=== PATIENT | female | born 1980 | race Caucasian/White ===

== ENCOUNTER 2023-03-17 18:13 | Emergency (ER) | payer OTHER ==
[~2023-03-17] VITALS: Ht 167.6 cm; Wt 90.7 kg
[2023-03-17 18:58] VITALS: BP 125/47; PULSE 87; RESP 20; TEMP 97.9; O2SAT 98
[2023-03-17] MEDS ORDERED: SUD30 PO (19:51)
[2023-03-17] MEDS ORDERED: BENZ100C6 PO (19:51)
[2023-03-17] MEDS ORDERED: IBUP-2213 PO (19:51)
[2023-03-17 20:45] LABS: FLU A ANTIGEN negative (NEGATIVE); FLU B ANTIGEN NEGATIVE (NEGATIVE)
[2023-03-18] MEDS ORDERED: NIRM1TAB9 PO (13:08)
== END 2023-03-17 20:29 | disposition home or self-care (01) ==
LOC: MED 18:13
DX: U07.1 COVID-19 (principal); Z79.899 Other long term (current) drug therapy; Z86.39 Personal history of other endocrine, nutritional and metabolic disease; Z88.5 Allergy status to narcotic agent; Z88.1 Allergy status to other antibiotic agents
CPT/HCPCS: 99283